=== PATIENT | female | born 1990 | race African-American/Black ===

== ENCOUNTER 2018-03-23 23:49 | Outpatient (CLI) | payer OTHER ==
[2018-03-24 00:26] VITALS: BP 118/78
== END 2018-03-24 00:47 | disposition home or self-care (01) ==
LOC: TRG 23:49
PROVIDERS: ATTEND Obstetrics & Gynecology
DX: O36.8130 Decreased fetal movements, third trimester, not applicable or unspecified (principal); Z3A.38 38 weeks gestation of pregnancy
CPT/HCPCS: 59025

== ENCOUNTER 2018-04-04 16:23 | Outpatient (CLI) | payer OTHER ==
[2018-04-04] MEDS ORDERED: PITOCin/NS 20 UNIT/1000ML DRIP 20,000 MILLIUNITS/1,000 ML BAG IV ONE (16:42)
[2018-04-04] MEDS ORDERED: REGLAN ONE (16:43)
[2018-04-04] MEDS ORDERED: ANCEF/STERILE WATER 2 GM/20 ML 2 GM/20 ML SYRINGE IV ONE (16:43)
[2018-04-04] MEDS ORDERED: BICITRA ONE (16:43)
[2018-04-04] MEDS ORDERED: PEPCID IV ONE (16:43)
[2018-04-04] MEDS ORDERED: TYLENOL PO ONE (17:26)
[2018-04-04 18:03] VITALS: BP 111/77
== END 2018-04-04 18:34 | disposition home or self-care (01) ==
LOC: TRG 16:23
PROVIDERS: ATTEND Obstetrics & Gynecology
DX: O47.1 False labor at or after 37 completed weeks of gestation (principal); Z3A.39 39 weeks gestation of pregnancy
CPT/HCPCS: 59025; J0690; J2590; J2765

== ENCOUNTER 2018-04-13 10:23 | Outpatient (CLI) | payer OTHER ==
[2018-04-14 06:18] VITALS: BP 119/78
== END 2018-04-13 12:50 | disposition home or self-care (01) ==
LOC: TRG 10:23
PROVIDERS: ATTEND Obstetrics & Gynecology
DX: O47.1 False labor at or after 37 completed weeks of gestation (principal); Z3A.41 41 weeks gestation of pregnancy
CPT/HCPCS: 59025

== ENCOUNTER 2018-04-14 06:01 | Outpatient (CLI) | payer OTHER | END 2018-04-14 09:00 | disposition home or self-care (01) | LOC: TRG 06:01 | PROVIDERS: ATTEND Obstetrics & Gynecology | DX: O47.1 False labor at or after 37 completed weeks of gestation (principal); Z3A.41 41 weeks gestation of pregnancy | CPT/HCPCS: 59025 ==

== ENCOUNTER 2018-04-14 20:19 | Inpatient (IN) | payer OTHER ==
--- NOTE | 2018-04-14 23:04 | History and Physical Report ---
History of Present Illness Date of examination: 04/14/18 Date of admission: 04/14/18 20:19 Chief complaint: here for scheduled induction History of present illness: 27yo Fe with LMP 07/04/2017 and DORA 04/10/2018 was seen this am at [facility] for her first visit to [facility]. care with [facility] in [place]. Her first ultrasound was done at 15 5/7 weeks (5 days off from LMP) and that doctor changed her due date to 04/05/2018. [facility] scheduled her induction tonight based on DORA 04/05/2018. No contractions. FHT's category I. Cervix closed, softening, -3 vtx. All labs wnl. GBS negative. Discussed induction process and the patient and her wish to start induction process. Dr Blackwell made aware. A: IUP 40 4/7 weeks Induction of labor Plan: Admit, admission labs, Cervidil per protocol, expectant management Past History Past Medical History: no pertinent history Past Surgical History: no surgical history Family/Genetic History: hypertension (mother) Social history: - Obstetrical History Expected Date of Delivery: 04/10/18 Actual Gestation: 40 Week(s) 4 Day(s) : 1 Para: 0 Medications and Allergies Allergies Allergy/AdvReac Type Severity Reaction Status Date / Time No Known Allergies Allergy Unverified 03/24/18 00:24 Home Medications Medication Instructions Recorded Confirmed Last Taken Type Vit-Fe Fumar-FA [ 1 tab PO QDAY 04/14/18 04/14/18 04/13/18 History Vitamin] Review of Systems All systems: negative - Vital Signs Vital signs: Vital Signs Pulse BP 118 H 123/77 04/14/18 21:23 04/14/18 21:23 Temp Pulse Resp BP Pulse Ox 96.4 F L 97 H 18 122/77 95 04/14/18 22:53 04/14/18 22:59 04/14/18 22:53 04/14/18 22:59 04/14/18 22:59 - Physical Exam Breasts: Positive: normal Cardiovascular: Regular rate, No murmurs Lungs: Positive: Clear to auscultation Abdomen: Positive: normal appearance Genitourinary (Female): Positive: normal external genitalia, normal perenium Vagina: Positive: normal moisture Uterus: Positive: enlarged (gravid) Extremities: Positive: normal Deep Tendon Reflex Grade: Normal +2 - Obstetrical FHR: category 1 Cervical Dilatation: 0 Cervical Effacement Percentage: 50 station: -3 Uterine Contraction Frequency (min): none Results All other labs normal. Assessment and Plan - Patient Problems (1) Intrauterine Current Visit: Yes Status: Acute
[2018-04-14] MEDS ORDERED: MINERAL OIL PO PRN (23:08)
[2018-04-14] MEDS ORDERED: ePHEDrine SULFATE IV PRN (23:08)
[2018-04-14] MEDS ORDERED: BRETHINE IVP PRN (23:08)
[2018-04-14] MEDS ORDERED: SUBLIMAZE IV PRN (23:08)
[2018-04-14] MEDS ORDERED: NARCAN 0.4 MG/1 ML IV PRN (23:08)
[2018-04-14] MEDS ORDERED: ZOFRAN IV PRN (23:08)
[2018-04-14] MEDS ORDERED: CERVIDIL VG ONE (23:08)
[2018-04-14] MEDS ORDERED: XYLOCAINE 2% INFILTRATI ONE (23:08)
[2018-04-14] MEDS ORDERED: BRETHINE SUB-Q PRN (23:08)
[2018-04-14] MEDS ORDERED: PITOCin/NS 20 UNIT/1000ML DRIP 20 UNITS/1,000 ML BAG IV SCH (23:45)
[2018-04-15] LABS: Hematocrit 39.1 % (30.3-42.9); Hemoglobin 12.9 gm/dl (10.1-14.3); Mean Corpuscular HGB Conc 33 % (30-34); Mean Corpuscular Hemoglobin 28 pg (28-32); Mean Corpuscular Volume 86 fl (79-97); Platelet Count 245 K/mm3 (140-440); Red Blood Count 4.54 M/mm3 (3.65-5.03); Red Cell Distribution Width 13.8 % (13.2-15.2)
[2018-04-15] MEDS: LACTATED RINGERS 1,000 ML IV SCH (15:50)
[2018-04-15] MEDS ORDERED: CERVIDIL VG ONE (16:39)
--- NOTE | 2018-04-15 17:07 | Progress Note ---
Assessment and Plan - Patient Problems (1) 40 weeks gestation of Onset Date: 04/15/18 Current Visit: Yes Status: Acute Plan to address problem: A: IUP @ 40 4/7 weeks - Doing well P: Continue with cervidil induction of labor, followed by pitocin. Subjective - Subjective Date of service: 04/15/18 Principal diagnosis: IUP @ 40 5/7 weeks Interval history: Pt is currently doing well without complaints. She received cervidil x1 without any cervical change, and having rare contractions. Patient reports: movement normal, contractions, no new complaints, no loss of fluid, no vaginal bleeding Objective - Vital Signs Vital Signs: Vital Signs - 12hr 04/15/18 04/15/18 04/15/18 05:25 06:26 07:25 Temperature Pulse Rate 83 98 H 82 Respiratory Rate Blood Pressure 95/59 106/68 104/66 Blood Pressure [Right] O2 Sat by Pulse Oximetry 04/15/18 04/15/18 04/15/18 08:25 08:33 08:39 Temperature 96.7 F L Pulse Rate 104 H 90 90 Respiratory 16 Rate Blood Pressure 109/72 110/77 Blood Pressure 110/77 [Right] O2 Sat by Pulse 98 Oximetry 04/15/18 04/15/18 04/15/18 08:40 08:46 08:50 Temperature Pulse Rate 95 H 100 H 104 H Respiratory Rate Blood Pressure Blood Pressure [Right] O2 Sat by Pulse 98 98 100 Oximetry 04/15/18 04/15/18 04/15/18 08:55 09:01 09:06 Temperature Pulse Rate 104 H 96 H 102 H Respiratory Rate Blood Pressure Blood Pressure [Right] O2 Sat by Pulse 98 99 99 Oximetry 04/15/18 04/15/18 04/15/18 09:11 09:16 09:21 Temperature Pulse Rate 92 H 99 H 93 H Respiratory Rate Blood Pressure Blood Pressure [Right] O2 Sat by Pulse 98 97 98 Oximetry 04/15/18 04/15/18 04/15/18 09:25 09:26 09:31 Temperature Pulse Rate 102 H 107 H 105 H Respiratory Rate Blood Pressure 107/66 Blood Pressure [Right] O2 Sat by Pulse 97 98 Oximetry 04/15/18 04/15/18 04/15/18 09:35 09:41 09:46 Temperature Pulse Rate 104 H 103 H 108 H Respiratory Rate Blood Pressure Blood Pressure [Right] O2 Sat by Pulse 97 98 98 Oximetry 04/15/18 04/15/18 04/15/18 09:51 09:56 10:00 Temperature Pulse Rate 116 H 96 H 101 H Respiratory Rate Blood Pressure Blood Pressure [Right] O2 Sat by Pulse 97 99 98 Oximetry 04/15/18 04/15/18 04/15/18 10:06 10:11 10:16 Temperature Pulse Rate 99 H 105 H 98 H Respiratory Rate Blood Pressure Blood Pressure [Right] O2 Sat by Pulse 98 98 98 Oximetry 04/15/18 04/15/18 04/15/18 10:21 10:25 10:26 Temperature Pulse Rate 97 H 100 H 101 H Respiratory Rate Blood Pressure 112/64 Blood Pressure [Right] O2 Sat by Pulse 98 98 Oximetry 04/15/18 04/15/18 04/15/18 10:31 10:36 10:41 Temperature Pulse Rate 101 H 97 H 94 H Respiratory Rate Blood Pressure Blood Pressure [Right] O2 Sat by Pulse 99 98 99 Oximetry 04/15/18 04/15/18 04/15/18 10:46 10:51 10:56 Temperature Pulse Rate 94 H 105 H 98 H Respiratory Rate Blood Pressure Blood Pressure [Right] O2 Sat by Pulse 100 98 98 Oximetry 04/15/18 04/15/18 04/15/18 11:01 11:06 11:11 Temperature Pulse Rate 104 H 95 H 99 H Respiratory Rate Blood Pressure Blood Pressure [Right] O2 Sat by Pulse 99 99 99 Oximetry 04/15/18 04/15/18 04/15/18 11:16 11:21 11:26 Temperature Pulse Rate 94 H 89 89 Respiratory Rate Blood Pressure 101/66 Blood Pressure [Right] O2 Sat by Pulse 99 98 98 Oximetry 04/15/18 04/15/18 04/15/18 11:31 11:36 11:41 Temperature Pulse Rate 94 H 87 91 H Respiratory Rate Blood Pressure Blood Pressure [Right] O2 Sat by Pulse 99 99 98 Oximetry 04/15/18 04/15/18 04/15/18 11:46 11:51 11:59 Temperature Pulse Rate 91 H 96 H 97 H Respiratory Rate Blood Pressure Blood Pressure [Right] O2 Sat by Pulse 98 98 98 Oximetry 04/15/18 04/15/18 04/15/18 12:04 12:09 12:14 Temperature Pulse Rate 99 H 104 H 96 H Respiratory Rate Blood Pressure Blood Pressure [Right] O2 Sat by Pulse 97 98 99 Oximetry 04/15/18 04/15/18 04/15/18 12:19 12:24 12:26 Temperature Pulse Rate 95 H 89 86 Respiratory Rate Blood Pressure 107/64 Blood Pressure [Right] O2 Sat by Pulse 100 99 Oximetry 04/15/18 04/15/18 04/15/18 12:29 12:34 12:39 Temperature Pulse Rate 93 H 93 H 85 Respiratory Rate Blood Pressure Blood Pressure [Right] O2 Sat by Pulse 98 97 97 Oximetry 04/15/18 04/15/18 04/15/18 12:44 12:49 12:54 Temperature Pulse Rate 95 H 98 H 97 H Respiratory Rate Blood Pressure Blood Pressure [Right] O2 Sat by Pulse 98 97 99 Oximetry 04/15/18 04/15/18 04/15/18 12:59 13:04 13:09 Temperature Pulse Rate 94 H 95 H 102 H Respiratory Rate Blood Pressure Blood Pressure [Right] O2 Sat by Pulse 98 97 98 Oximetry 04/15/18 04/15/18 04/15/18 13:14 13:19 13:24 Temperature Pulse Rate 94 H 98 H 92 H Respiratory Rate Blood Pressure Blood Pressure [Right] O2 Sat by Pulse 98 98 97 Oximetry 04/15/18 04/15/18 04/15/18 13:25 13:29 13:34 Temperature Pulse Rate 96 H 82 86 Respiratory Rate Blood Pressure 104/61 Blood Pressure [Right] O2 Sat by Pulse 97 97 Oximetry 04/15/18 04/15/18 04/15/18 13:39 15:14 15:25 Temperature Pulse Rate 84 87 88 Respiratory Rate Blood Pressure 125/77 108/77 Blood Pressure [Right] O2 Sat by Pulse 97 Oximetry 04/15/18 16:27 Temperature Pulse Rate 96 H Respiratory Rate Blood Pressure 112/73 Blood Pressure [Right] O2 Sat by Pulse Oximetry - Exam Abdomen: Present: normal appearance, soft FHR: category 1 Uterine Contraction Pattern: Absent - Labs Labs: Laboratory Results - last 24 hr 04/14/18 04/15/18 04/15/18 23:15 01:02 03:25 WBC 6.6 RBC 4.54 Hgb 12.9 Hct 39.1 MCV 86 MCH 28 MCHC 33 RDW 13.8 Plt Count 245 POC Glucose 97 Blood Type B POSITIVE Antibody Screen Negative
[2018-04-16] MEDS: STADOL IV PRN ×3 (01:48→13:35)
[2018-04-16] MEDS: LACTATED RINGERS 1,000 ML IV SCH (09:49)
[2018-04-16] MEDS ORDERED: PITOCin/NS 30 UNIT/500ML 30 UNITS/500 ML BAG IV SCH (10:00)
--- NOTE | 2018-04-16 13:30 | Progress Note ---
Assessment and Plan - Patient Problems (1) 40 weeks gestation of Onset Date: 04/15/18 Current Visit: Yes Status: Acute Plan to address problem: A: IUP @ 40 6/7 weeks - Doing well P: Continue with pitocin induction of labor. Subjective - Subjective Date of service: 04/16/18 Principal diagnosis: IUP @ 40 6/7 weeks Interval history: Pt is currently doing well without complaints. She received cervidil x1 and now pitocin with some cervical change, and having contractions q 3 mins. Patient reports: movement normal, contractions, no new complaints, no loss of fluid, no vaginal bleeding Objective - Vital Signs Vital Signs: Vital Signs - 12hr 04/16/18 04/16/18 04/16/18 02:13 02:16 02:18 Temperature Pulse Rate 95 H 91 H 99 H Respiratory Rate Blood Pressure Blood Pressure [Right] O2 Sat by Pulse 94 94 94 Oximetry 04/16/18 04/16/18 04/16/18 02:23 02:27 02:28 Temperature Pulse Rate 84 90 92 H Respiratory Rate Blood Pressure 122/77 Blood Pressure [Right] O2 Sat by Pulse 94 96 Oximetry 04/16/18 04/16/18 04/16/18 02:33 02:38 02:42 Temperature Pulse Rate 98 H 91 H 94 H Respiratory Rate Blood Pressure Blood Pressure [Right] O2 Sat by Pulse 94 97 94 Oximetry 04/16/18 04/16/18 04/16/18 02:43 02:48 02:50 Temperature Pulse Rate 93 H 90 98 H Respiratory Rate Blood Pressure Blood Pressure [Right] O2 Sat by Pulse 95 96 94 Oximetry 04/16/18 04/16/18 04/16/18 02:53 02:58 03:01 Temperature Pulse Rate 93 H 98 H 114 H Respiratory Rate Blood Pressure Blood Pressure [Right] O2 Sat by Pulse 95 96 94 Oximetry 04/16/18 04/16/18 04/16/18 03:03 03:08 03:13 Temperature Pulse Rate 103 H 121 H 122 H Respiratory Rate Blood Pressure Blood Pressure [Right] O2 Sat by Pulse 96 94 93 Oximetry 04/16/18 04/16/18 04/16/18 03:14 03:18 03:20 Temperature Pulse Rate 120 H 101 H 107 H Respiratory Rate Blood Pressure Blood Pressure [Right] O2 Sat by Pulse 93 97 94 Oximetry 04/16/18 04/16/18 04/16/18 03:23 03:25 03:26 Temperature Pulse Rate 108 H 120 H 120 H Respiratory 18 Rate Blood Pressure 114/74 Blood Pressure 114/74 [Right] O2 Sat by Pulse 96 95 Oximetry 04/16/18 04/16/18 04/16/18 03:28 03:30 03:33 Temperature Pulse Rate 120 H 120 H 110 H Respiratory Rate Blood Pressure Blood Pressure [Right] O2 Sat by Pulse 95 94 97 Oximetry 04/16/18 04/16/18 04/16/18 03:38 03:43 03:48 Temperature Pulse Rate 105 H 113 H 127 H Respiratory Rate Blood Pressure Blood Pressure [Right] O2 Sat by Pulse 98 97 94 Oximetry 04/16/18 04/16/18 04/16/18 03:53 03:58 04:03 Temperature Pulse Rate 110 H 115 H 100 H Respiratory Rate Blood Pressure Blood Pressure [Right] O2 Sat by Pulse 95 97 97 Oximetry 04/16/18 04/16/18 04/16/18 04:08 04:13 04:18 Temperature Pulse Rate 98 H 108 H 104 H Respiratory Rate Blood Pressure Blood Pressure [Right] O2 Sat by Pulse 96 97 97 Oximetry 04/16/18 04/16/18 04/16/18 04:23 04:25 04:28 Temperature Pulse Rate 121 H 112 H 98 H Respiratory Rate Blood Pressure 117/74 Blood Pressure [Right] O2 Sat by Pulse 97 97 Oximetry 04/16/18 04/16/18 04/16/18 04:33 04:38 04:43 Temperature Pulse Rate 105 H 103 H 121 H Respiratory Rate Blood Pressure Blood Pressure [Right] O2 Sat by Pulse 97 97 97 Oximetry 04/16/18 04/16/18 04/16/18 04:48 04:53 04:58 Temperature Pulse Rate 119 H 97 H 111 H Respiratory Rate Blood Pressure Blood Pressure [Right] O2 Sat by Pulse 95 96 98 Oximetry 04/16/18 04/16/18 04/16/18 05:03 05:08 05:13 Temperature Pulse Rate 102 H 113 H 103 H Respiratory Rate Blood Pressure Blood Pressure [Right] O2 Sat by Pulse 97 96 96 Oximetry 04/16/18 04/16/18 04/16/18 05:18 05:34 05:35 Temperature Pulse Rate 103 H 107 H 109 H Respiratory Rate Blood Pressure 115/68 Blood Pressure [Right] O2 Sat by Pulse 96 97 Oximetry 04/16/18 04/16/18 04/16/18 05:40 05:45 05:50 Temperature Pulse Rate 105 H 102 H 115 H Respiratory Rate Blood Pressure Blood Pressure [Right] O2 Sat by Pulse 97 97 97 Oximetry 04/16/18 04/16/18 04/16/18 05:55 06:00 06:05 Temperature Pulse Rate 100 H 105 H 99 H Respiratory Rate Blood Pressure Blood Pressure [Right] O2 Sat by Pulse 96 98 97 Oximetry 04/16/18 04/16/18 04/16/18 06:10 06:15 06:20 Temperature 96.5 F L Pulse Rate 100 H 107 H 94 H Respiratory 17 Rate Blood Pressure Blood Pressure 93/54 [Right] O2 Sat by Pulse 97 96 94 Oximetry 04/16/18 04/16/18 04/16/18 06:24 06:25 06:30 Temperature Pulse Rate 86 88 85 Respiratory Rate Blood Pressure 95/53 Blood Pressure [Right] O2 Sat by Pulse 94 95 Oximetry 04/16/18 04/16/18 04/16/18 06:31 06:35 06:40 Temperature Pulse Rate 90 93 H 93 H Respiratory Rate Blood Pressure Blood Pressure [Right] O2 Sat by Pulse 93 95 95 Oximetry 04/16/18 04/16/18 04/16/18 06:41 06:45 06:47 Temperature Pulse Rate 96 H 95 H 97 H Respiratory Rate Blood Pressure Blood Pressure [Right] O2 Sat by Pulse 94 95 94 Oximetry 04/16/18 04/16/18 04/16/18 06:50 06:58 06:59 Temperature Pulse Rate 91 H 101 H 100 H Respiratory Rate Blood Pressure Blood Pressure [Right] O2 Sat by Pulse 95 94 96 Oximetry 04/16/18 04/16/18 04/16/18 07:04 07:09 07:14 Temperature Pulse Rate 93 H 90 91 H Respiratory Rate Blood Pressure Blood Pressure [Right] O2 Sat by Pulse 96 96 96 Oximetry 04/16/18 04/16/18 04/16/18 07:19 07:24 07:27 Temperature Pulse Rate 98 H 87 97 H Respiratory Rate Blood Pressure 112/59 Blood Pressure [Right] O2 Sat by Pulse 96 95 Oximetry 04/16/18 04/16/18 04/16/18 07:29 07:32 07:34 Temperature Pulse Rate 94 H 103 H 96 H Respiratory Rate Blood Pressure Blood Pressure [Right] O2 Sat by Pulse 95 94 95 Oximetry 04/16/18 04/16/18 04/16/18 07:39 07:44 07:49 Temperature Pulse Rate 96 H 91 H 92 H Respiratory Rate Blood Pressure Blood Pressure [Right] O2 Sat by Pulse 96 96 96 Oximetry 04/16/18 04/16/18 04/16/18 07:51 07:54 07:58 Temperature Pulse Rate 119 H 95 H 107 H Respiratory Rate Blood Pressure Blood Pressure [Right] O2 Sat by Pulse 94 96 91 Oximetry 04/16/18 04/16/18 04/16/18 07:59 08:04 08:09 Temperature Pulse Rate 103 H 90 104 H Respiratory Rate Blood Pressure Blood Pressure [Right] O2 Sat by Pulse 96 96 97 Oximetry 04/16/18 04/16/18 04/16/18 08:14 08:19 08:24 Temperature Pulse Rate 98 H 100 H 101 H Respiratory Rate Blood Pressure Blood Pressure [Right] O2 Sat by Pulse 97 97 98 Oximetry 04/16/18 04/16/18 04/16/18 08:25 08:29 08:34 Temperature Pulse Rate 91 H 95 H 98 H Respiratory Rate Blood Pressure 100/57 Blood Pressure [Right] O2 Sat by Pulse 97 97 Oximetry 04/16/18 04/16/18 04/16/18 08:39 08:44 08:49 Temperature Pulse Rate 99 H 94 H 113 H Respiratory Rate Blood Pressure Blood Pressure [Right] O2 Sat by Pulse 96 97 98 Oximetry 04/16/18 04/16/18 04/16/18 08:58 09:03 09:08 Temperature Pulse Rate 97 H 101 H 98 H Respiratory Rate Blood Pressure Blood Pressure [Right] O2 Sat by Pulse 98 97 97 Oximetry 04/16/18 04/16/18 04/16/18 09:13 09:18 09:23 Temperature Pulse Rate 90 103 H 105 H Respiratory Rate Blood Pressure Blood Pressure [Right] O2 Sat by Pulse 97 98 97 Oximetry 04/16/18 04/16/18 04/16/18 09:28 09:33 09:58 Temperature Pulse Rate 87 97 H 100 H Respiratory Rate Blood Pressure 114/69 Blood Pressure [Right] O2 Sat by Pulse 97 98 Oximetry 0704/16/18 04/16/18 09:59 10:04 10:09 Temperature Pulse Rate 103 H 100 H 106 H Respiratory Rate Blood Pressure Blood Pressure [Right] O2 Sat by Pulse 97 97 97 Oximetry 04/16/18 04/16/18 04/16/18 10:14 10:19 10:24 Temperature Pulse Rate 91 H 87 93 H Respiratory Rate Blood Pressure Blood Pressure [Right] O2 Sat by Pulse 97 97 97 Oximetry 04/16/18 04/16/18 04/16/18 10:25 10:29 10:34 Temperature Pulse Rate 85 90 86 Respiratory Rate Blood Pressure 106/66 Blood Pressure [Right] O2 Sat by Pulse 97 96 Oximetry 04/16/18 04/16/18 04/16/18 10:39 10:44 11:13 Temperature Pulse Rate 82 83 84 Respiratory Rate Blood Pressure Blood Pressure [Right] O2 Sat by Pulse 96 97 97 Oximetry 04/16/18 04/16/18 04/16/18 11:18 11:23 11:28 Temperature Pulse Rate 113 H 92 H 93 H Respiratory Rate Blood Pressure Blood Pressure [Right] O2 Sat by Pulse 97 98 98 Oximetry 04/16/18 04/16/18 04/16/18 11:33 11:38 11:43 Temperature Pulse Rate 103 H 97 H 84 Respiratory Rate Blood Pressure Blood Pressure [Right] O2 Sat by Pulse 96 100 97 Oximetry 04/16/18 04/16/18 04/16/18 11:48 11:53 11:58 Temperature Pulse Rate 111 H 86 105 H Respiratory Rate Blood Pressure Blood Pressure [Right] O2 Sat by Pulse 99 98 97 Oximetry 04/16/18 04/16/18 04/16/18 12:03 12:08 12:09 Temperature Pulse Rate 88 102 H 82 Respiratory Rate Blood Pressure Blood Pressure [Right] O2 Sat by Pulse 100 96 92 Oximetry 04/16/18 04/16/18 04/16/18 12:13 12:17 12:18 Temperature Pulse Rate 88 80 82 Respiratory Rate Blood Pressure Blood Pressure [Right] O2 Sat by Pulse 99 94 95 Oximetry 04/16/18 04/16/18 04/16/18 12:23 12:25 12:28 Temperature Pulse Rate 92 H 89 72 Respiratory Rate Blood Pressure 115/70 Blood Pressure [Right] O2 Sat by Pulse 100 99 Oximetry 04/16/18 04/16/1804/16/18 12:33 12:34 12:38 Temperature Pulse Rate 113 H 76 87 Respiratory Rate Blood Pressure Blood Pressure [Right] O2 Sat by Pulse 98 94 100 Oximetry - Exam Abdomen: Present: soft FHR: category 1 Uterine Contraction Monitor Mode: External Uterine Contraction Pattern: Regular Uterine Tone Measurement Phase: Contraction Uterine Contraction Intensity: Moderate
--- NOTE | 2018-04-16 15:02 | Anesthesia Consultation ---
Anesthesia Consult and Med Hx Date of service: 04/16/18 - Airway Anesthetic Teeth Evaluation: Good ROM Head & Neck: Adequate Mental/Hyoid Distance: Adequate Mallampati Class: Class II Intubation Access Assessment: Good - Pulmonary Exam CTA: Yes - Cardiac Exam Cardiac Exam: No Murmur - Pre-Operative Health Status ASA Pre-Surgery Classification: ASA2 Proposed Anesthetic Plan: Epidural - Pulmonary Hx Asthma: No - Cardiovascular System Hx Hypertension: No - Central Nervous System Hx Seizures: No Hx Psychiatric Problems: No - Endocrine Hx Renal Disease: No Hx Hypothyroidism: No Hx Hyperthyroidism: No - Hematic Hx Anemia: No Hx Sickle Cell Disease: No - Other Systems Hx Alcohol Use: No
[2018-04-16] MEDS ORDERED: ePHEDrine SULFATE IV PRN (15:03)
[2018-04-16] MEDS ORDERED: NARCAN 2 MG/2 ML IV PRN (15:03)
[2018-04-16] MEDS ORDERED: fentaNYL-BUPIV 2 MCG/ML-0.125% 200 MCG/100 ML BAG EPIDURAL SCH (16:00)
--- NOTE | 2018-04-17 01:59 | Procedure Note ---
OB Delivery Note - Delivery Date of Delivery: 04/17/18 Surgeon: CAROL MCDOWELL Estimated blood loss: 300cc - Vaginal Delivery presentation: vertex Delivery position: OA Intrapartum events: PROM->1hr before delivery Delivery induction: cervidil Delivery augmentation: rupture of membranes, pitocin Delivery monitor: external FHT, external uterine Route of delivery: Delivery placenta: spontaneous Delivery cord: 3 umbilical vessels Episiotomy: none Delivery laceration: 2nd degree Delivery repair: vicryl Anesthesia: epidural Delivery comments: Infant delivered OA and placed on Mom's chest for [id number] bonding and delayed cord clamping. - Infant A at 1 minute: 8 at 5 minutes: 9 Infant Gender: Male ([id number])
[2018-04-17] MEDS ORDERED: LANSINOH TP PRN (02:00)
[2018-04-17] MEDS ORDERED: PHENERGAN PR PRN (02:00)
[2018-04-17] MEDS ORDERED: MILK OF MAGNESIA PO PRN (02:00)
[2018-04-17] MEDS ORDERED: BENADRYL PO PRN (02:00)
[2018-04-17] MEDS ORDERED: ZOFRAN IV PRN (02:00)
[2018-04-17] MEDS ORDERED: PHENERGAN PO PRN (02:00)
[2018-04-17] MEDS ORDERED: TUCKS PAD TP PRN (02:00)
[2018-04-17] MEDS ORDERED: SODIUM CHLORIDE FLUSH SYRINGE 10 ML IV NR (02:00)
[2018-04-17] MEDS ORDERED: DULCOLAX PR PRN (02:00)
[2018-04-17] MEDS: PITOCin/NS 20 UNIT/1000ML DRIP 20 UNITS/1,000 ML BAG IV SCH ×2 (02:00→02:47)
[2018-04-17] MEDS ORDERED: TYLENOL PO PRN (02:00)
[2018-04-17] MEDS: NORCO 5/325 PO PRN ×2 (02:43→13:30)
[2018-04-17] MEDS: MOTRIN PO SCH ×3 (05:54→21:29)
[2018-04-17] MEDS: COLACE PO SCH ×2 (13:30→21:29)
[2018-04-17] MEDS: FEOSOL PO SCH ×2 (13:30→21:29)
[2018-04-17 16:56] LABS: Hematocrit 29.7 % (30.3-42.9); Hemoglobin 10.2 gm/dl (10.1-14.3)
[2018-04-17] MEDS: PRENATAL VITAMIN PO SCH (17:43)
[2018-04-18] MEDS: MOTRIN PO SCH ×4 (00:15→18:45)
[2018-04-18] MEDS ORDERED: BOOSTRIX IM ONE (06:00)
[2018-04-18] MEDS ORDERED: M-M-R II VACCINE SUB-Q ONE (06:00)
[2018-04-18] MEDS: PRENATAL VITAMIN PO SCH (10:31)
[2018-04-18] MEDS: FEOSOL PO SCH ×2 (10:31→22:06)
[2018-04-18] MEDS: COLACE PO SCH ×2 (10:31→22:06)
[2018-04-18] MEDS: NORCO 5/325 PO PRN (10:39)
--- NOTE | 2018-04-18 10:53 | Progress Note ---
Assessment and Plan - Patient Problems (1) 40 weeks gestation of Onset Date: 04/15/18 Current Visit: Yes Status: Resolved (2) (normal spontaneous vaginal delivery) Onset Date: 04/18/18 Current Visit: Yes Status: Resolved Plan to address problem: A: S/P - PPD #1 Doing well Asymptomatic anemia - stable P: May go home tomorrow. Subjective - Subjective Date of service: 04/18/18 Principal diagnosis: s/p - PPD #1 Interval history: Pt is feeling well, complains of dizziness - after further discussion, dizziness occurs after taking narcotic medication. Bleeding has improved. Patient reports: appetite normal, voiding normally, pain well controlled, flatus , ambulating normally, no dizzy ambulation, no nauseated [place]: doing well, nursing well, bottle feeding Objective - Vital Signs Latest vital signs: Vital Signs Temp Pulse Resp BP BP Pulse Ox 04/18/18 10:39 20 04/17/18 23:37 98.4 F 95 H 20 107/65 04/17/18 15:39 98.9 F 90 14 93/59 98 Intake and Output 04/17/18 04/18/18 04/18/18 22:59 06:59 14:59 Intake Total 480 Balance 480 Intake: Intake, Free Water 480 Other: # Voids Void 2 - Exam Breasts: Present: deferred Cardiovascular: Present: Regular rate Lungs: Present: Clear to auscultation Abdomen: Present: normal appearance, soft Uterus: Present: normal, firm, fundal height below umbilicus Extremities: Present: normal - Labs Labs: Abnormal lab results 04/17/18 Range/Units 16:30 Hct 29.7 L D (30.3-42.9) % Laboratory Tests 04/14/18 04/15/18 04/15/18 23:15 01:02 03:25 WBC 6.6 RBC 4.54 Hgb 12.9 Hct 39.1 MCV 86 MCH 28 MCHC 33 RDW 13.8 Plt Count 245 POC Glucose 97 Blood Type B POSITIVE Antibody Screen Negative 04/17/18 16:30 WBC RBC Hgb 10.2 Hct 29.7 L D MCV MCH MCHC RDW Plt Count POC Glucose Blood Type Antibody Screen
[2018-04-18] MEDS ORDERED: NACL 0.9% 500 ML 500 ML IV NR (11:44)
[2018-04-18] MEDS ORDERED: BENADRYL IV NR (11:45)
[2018-04-18] MEDS ORDERED: TYLENOL PO NR (12:00)
[2018-04-18 13:35] LABS: Hemoglobin 10.2 gm/dl (10.1-14.3)
--- NOTE | 2018-04-18 15:45 | Discharge Summary ---
Providers - Providers Date of Admission: 04/14/18 20:19 Date of discharge: 04/19/18 Attending physician: CAROL MCDOWELL Primary care physician: CAROL MCDOWELL Hospitalization Reason for admission: induction of labor, IUP at term Delivery: Episiotomy: none Other procedures: none complications: none Discharge diagnosis: IUP at term delivered baby: male Hospital course: Unremarkable. Condition at discharge: Good Disposition: DC-01 TO HOME OR SELFCARE - Discharge Diagnoses (1) 40 weeks gestation of Status: Resolved (2) (normal spontaneous vaginal delivery) Status: Resolved Plan - Discharge Medications Prescriptions: Ferrous Sulfate [Feosol 325 MG tab] 325 mg PO BID #60 tablet Ibuprofen [Motrin 600 MG tab] 600 mg PO Q6H #30 tablet Vit-Fe Fumar-FA [ Vitamin] 1 each PO QDAY #30 tablet - Provider Discharge Summary Activity: routine, no sex for 6 weeks, no heavy lifting 4 weeks, no strenuous exercise Diet: routine Instructions: routine Additional instructions: [] Smoking cessation referral if applicable(refer to patient education folder for contact #) [] Refer to [facility] Booklet Call your doctor immediately for: * Fever > 100.5 * Heavy vaginal bleeding ( >1 pad per hour) * Severe persistent headache * Shortness of breath * Reddened, hot, painful area to leg or breast * Drainage or odor from incision. * Keep incision clean and dry at all times and follow doctor's instructions regarding bathing/showering - Follow up plan Follow up: CAROL MCDOWELL MD [Primary Care Provider] - 6 Weeks DAMASO CASPER CNM [Advanced Practice Nurse] - 6 Weeks
[2018-04-19] MEDS: MOTRIN PO SCH (08:42)
[2018-04-19] MEDS ORDERED: DERMOPLAST TP ONE (08:48)
[2018-04-19] MEDS ORDERED: DERMOPLAST TP PRN (08:53)
[2018-04-19] MEDS: COLACE PO SCH (10:25)
[2018-04-19] MEDS: PRENATAL VITAMIN PO SCH (10:25)
[2018-04-19] MEDS: FEOSOL PO SCH (10:25)
[2018-04-19 11:18] VITALS: BP 116/74
== END 2018-04-19 11:45 | disposition home or self-care (01) | DRG 775 ==
LOC: LD 20:19 → OB 04-17 04:55
PROVIDERS: ADMIT Obstetrics & Gynecology; ATTEND Obstetrics & Gynecology
PROC: 10E0XZZ Delivery of Products of Conception, External Approach (ICD-10-PCS; principal; 2018-04-17)
PROC: 0KQM0ZZ Repair Perineum Muscle, Open Approach (ICD-10-PCS; 2018-04-17)
PROC: 3E033VJ Introduction of Other Hormone into Peripheral Vein, Percutaneous Approach (ICD-10-PCS; 2018-04-17)
PROC: 3E0R3BZ Introduction of Anesthetic Agent into Spinal Canal, Percutaneous Approach (ICD-10-PCS; 2018-04-17)
PROC: 00HU33Z Insertion of Infusion Device into Spinal Canal, Percutaneous Approach (ICD-10-PCS; 2018-04-17)
PROC: 3E0234Z Introduction of Serum, Toxoid and Vaccine into Muscle, Percutaneous Approach (ICD-10-PCS; 2018-04-17)
PROC: 3E0P7VZ Introduction of Hormone into Female Reproductive, Via Natural or Artificial Opening (ICD-10-PCS; 2018-04-17)
DX: O42.02 Full-term premature rupture of membranes, onset of labor within 24 hours of rupture (principal); Z3A.40 40 weeks gestation of pregnancy; Z37.0 Single live birth; Z82.49 Family history of ischemic heart disease and other diseases of the circulatory system; O70.1 Second degree perineal laceration during delivery; O99.02 Anemia complicating childbirth; D64.9 Anemia, unspecified; Z23 Encounter for immunization
CPT/HCPCS: 36415; 59200; 82962; 85014; 85018; 85027; 86850; 86900; 86901; 86920; 99211; G0463; J0595; J2590; J7120